=== PATIENT | male | born 1950 | race Caucasian/White ===

== ENCOUNTER 2017-07-10 05:27 | Inpatient (IN) | payer BC, OTHER ==
[2017-06-12 12:00] VITALS: BMI 36.0
--- NOTE | 2017-06-12 12:36 | PAT Medication Instructions ---
Service Date Jun 12, 2017. Current Home Medication List Acetaminophen (Tylenol), 1,000 MG PO PRN Albuterol Hfa (Ventolin Hfa), 2-4 PUFFS INH Q6H PRN for PRN Coenzyme Q10 (Ubidecarenone) (Coq10), 200 MG PO QPM Duloxetine HCl (Cymbalta), 1 CAP PO HS Gabapentin (Neurontin), 100 MG PO QID PRN for RN Hctz/Losartan (Hyzaar 12.5MG/50MG), 1 TAB PO QPM Naproxen (Aleve), 440 MG PO PRN Omeprazole (Prilosec), 20 MG PO QAM Medication Instructions For Your Scheduled Surgery - Check with surgeon for instructions: Naproxen (Aleve), 440 MG PO PRN - Hold the following medications 2 weeks prior to surgery: Coenzyme Q10 (Ubidecarenone) (Coq10), 200 MG PO QPM - Take the following medications the morning of surgery with a sip of water: Gabapentin (Neurontin), 100 MG PO QID PRN for RN (if needed) Omeprazole (Prilosec), 20 MG PO QAM Acetaminophen (Tylenol), 1,000 MG PO PRN (if needed) Albuterol Hfa (Ventolin Hfa), 2-4 PUFFS INH Q6H PRN for PRN (if needed) - Hold the following medications as scheduled the night before surgery: Hctz/Losartan (Hyzaar 12.5MG/50MG), 1 TAB PO QPM - Take the following medications as scheduled the night before surgery: Gabapentin (Neurontin), 100 MG PO QID PRN for RN (if needed) Duloxetine HCl (Cymbalta), 1 CAP PO HS Acetaminophen (Tylenol), 1,000 MG PO PRN (if needed) Albuterol Hfa (Ventolin Hfa), 2-4 PUFFS INH Q6H PRN for PRN (if needed) If you have any questions please call us at [phone] or [phone] or [phone]
[2017-06-12 13:01] LABS: BASO % 0.3 %; BASO ABS # 0.03 K/uL (0-0.2); COMPLETE YES; EOS % 2.3 %; HEMATOCRIT 41.1 % (42-52); IG% 0.6 %; LYMPH % 31.5 %; LYMPH ABS # 3.02 K/uL (1.2-3.4); MEAN CELL VOLUME 87.1 fL (80-100); MEAN CORPUSCULAR HEMOGLOBIN 30.7 pg (25-34); MEAN CORPUSCULAR HGB CONC 35.3 g/dl (32-36); MEAN PLATELET VOLUME 10.1 fL (7.4-10.4); MONO % 9.9 %; NEUT % 55.4 %; PLATELET COUNT 281 K/uL (130-400); RED BLOOD COUNT 4.72 M/uL (4.7-6.1); URINE APPEARANCE CLEAR (CLEAR); URINE BILIRUBIN NEG (NEG); URINE COLOR YELLOW; URINE NITRITE NEG (NEG); URINE SPECIFIC GRAVITY 1.016 (1.000-1.030); UROBILINOGEN NEG (NEG); ZZUR CULT IF INDIC CLEAN CATCH NO
[2017-06-12 13:03] LABS: MANUAL MICROSCOPIC REQUIRED? NO; REVIEW REQ? NO
[~2017-07-10] VITALS: Ht 170.2 cm; Wt 106.8 kg
[2017-07-10] VITALS (19 sets, daily range): BP systolic 120–166; BP diastolic 60–85; PULSE 72–97; TEMP 36.4–36.8; O2SAT 93–98; Ht 170.2 cm; Wt 106.8 kg
[~2017-07-10 05:27] MED LIST: ACET-1256 PO; COEN1CAP7 PO; CYM/30 PO; GABA-112 PO; HYZ/50125 PO; NAPR1TAB9 PO; PRLSR20 PO; VNTHFA/IN INH
[2017-07-10] MEDS ORDERED: LACTATED RINGER'S 1000ML 1,000 ML IV SCH (06:00)
[2017-07-10] MEDS ORDERED: CEFAZOLIN 2000 MG/60 ML D5W IV SCH (06:00)
[2017-07-10] MEDS ORDERED: FENTANYL CITRATE INJ 50 MCG/1 ML 2 ML VIAL ONE ×3 (06:41→07:59)
[2017-07-10] MEDS ORDERED: MIDAZOLAM HCL 1 MG/ML 2ML VIAL ONE (06:41)
[2017-07-10] MEDS ORDERED: SODIUM CHLORIDE 0.9% PF 50 ML VIAL ONE (07:09)
[2017-07-10] MEDS ORDERED: BACITRACIN 50000 UNIT VIAL ONE (07:09)
--- NOTE | 2017-07-10 07:27 | History & Physical Bridge Note ---
H&P Re-Evaluation Bridge Note: I have examined the patient, reviewed the History & Physical and in the interval since the performance of the History & Physical I have noted the following changes of clinical significance: No changes noted
--- NOTE | 2017-07-10 07:29 | History and Physical ---
History & Physical Date Jul 10, 2017. Chief Complaint Neck and arm pain History of Present Illness The patient is a 66 year old male with complaints of neck and arm pain Additional History Hepatic Disease: No Endocrine Disorder: No Kidney Disease: No Hypertension: Yes Heart Disease: No Bleeding Tendencies: No Infectious Diseases: No Allergies Coded Allergies: Aspirin (Verified Allergy, Unknown, LIPS SWELL, 07/10/17) Lisinopril (Verified Allergy, Unknown, COUGH, 07/10/17) Meperidine (Verified Allergy, Unknown, SLEEPS FOR HRS AND HRS, 07/10/17) Propoxyphene (Verified Allergy, Unknown, HIVES, 07/10/17) Statins (Verified Allergy, Unknown, BACK PAIN, 07/10/17) Home Medications Scheduled Acetaminophen (Tylenol), 1,000 MG PO PRN Coenzyme Q10 (Ubidecarenone) (Coq10), 200 MG PO QPM Duloxetine HCl (Cymbalta), 1 CAP PO HS Hctz/Losartan (Hyzaar 12.5MG/50MG), 1 TAB PO QPM Naproxen (Aleve), 440 MG PO PRN Omeprazole (Prilosec), 20 MG PO QAM Scheduled PRN Albuterol Hfa (Ventolin Hfa), 2-4 PUFFS INH Q6H PRN for PRN Gabapentin (Neurontin), 100 MG PO QID PRN for RN Physical Examination Skin: warm/dry, no rash Eyes: normal inspection, EOMI, sclerae normal ENT: normal ENT inspection, pharynx normal Head: normocephalic, atraumatic Neck: supple, no adenopathy, trachea midline Respiratory/Chest: lungs clear, normal breath sounds, no respiratory distress Cardiovascular: regular rate, rhythm, no edema, no murmur Abdomen / GI: normal bowel sounds, non tender Back: normal inspection Extremities: normal inspection, normal range of motion Neurologic/Psych: no motor/sensory deficits, alert, normal reflexes, oriented x 3 Diagnosis Cervical spinal stenosis with radiculopathy Plan of Treatment ACDF C6 7
[2017-07-10] MEDS ORDERED: EpHEDrine SULFATE INJ 50 MG/ML AMP IV PRN (07:30)
[2017-07-10] MEDS ORDERED: PHENYLEPHRINE 100MCG/ML 5ML SYR IV PRN (07:30)
[2017-07-10] MEDS ORDERED: ONDANSETRON INJ 2 MG/ML 2 ML VIAL IV PRN ×2 (07:30→09:00)
[2017-07-10] MEDS ORDERED: ATROPINE SULFATE 0.1 MG/ML 5ML SYR IV PRN (07:30)
[2017-07-10] MEDS ORDERED: HYDROmorphone INJ 2 MG/ML SYR/VIAL ONE ×2 (07:59→08:43)
[2017-07-10] MEDS ORDERED: PROPOFOL IV EMULSION 10 MG/ML 20 ML VIAL IV ONE (08:20)
[2017-07-10] MEDS ORDERED: CEFAZOLIN SOD 1 GM VIAL ONE (08:20)
[2017-07-10] MEDS ORDERED: DEXAMETHASONE SOD INJ 4 MG/ML VIAL ONE (08:20)
[2017-07-10] MEDS ORDERED: FLOSEAL HEMOSTATIC MATRIX 5ML TOP ONE (08:44)
--- NOTE | 2017-07-10 08:58 | [facility] Operative Report ---
Operative Report Operative Date Jul 10, 2017. Pre-Operative Diagnosis Cervical spinal stenosis with radiculopathy Post-Operative Diagnosis Cervical spinal stenosis with radiculopathy Procedure(s) Performed #1 anterior cervical discectomy bilateral foraminotomies C6 7. #2 anterior cervical arthrodesis C6 7. #3 placement of cortical R graft 9 mm in height filled with DBM C6 7. #4 application of vega plate and screws across C6 7. Surgeon Dr. Arcadio Carpenter Last Turner Surgeon(s) DESTINY Qureshi Estimated Blood Loss 10ml Findings Herniated nucleus pulposus C6 7 Specimens none per surgeon Description of Procedure Patient was met with case discussed all questions are dressed. After informed consent patient taken the operative suite and underwent intubation placed in a supine position on the [place] table head in the [place] headholder. Anterior cervical spine was prepped and draped nostril fashion. With the assistance of fluoroscopy we identified the C6 7 disc space. A transverse incision was placed along the right anterior aspect of the cervical spine overlying this region. Sharp dissection with the assistance of bipolar cautery was performed onto an exposing the anterior cervical spine at C6 7. Self-retaining retractors placed. Complete discectomy of C6 7 was then performed out to the uncovertebral joints bilaterally. This did include removal of all posterior annular fibers and longitudinal ligament and bilateral foraminotomies. [place] distracting pins were utilized to assist us no visualization. After complete decompression endplates were burred to subcortical bleeding bone and a 9 mm cortical R graft filled with DBM tapped in position. Distracting apparatus was removed all anterior osteophytes burred to a smooth cortical surface and a vega plate and screws applied with the assistance of fluoroscopy. Incision was in copious irrigated explored to ensure there is no damage turning structures remaining bleeding. 10 round JAN drain was inserted. Incision was then closed with 2 Vicryl in the fascia for Monocryl for final closure Steri- Strip sterile dressing placed patient we can taken to PACU stable condition. Please note Josefina Leyva was present at the entire procedure involved in patient positioning complex portions of the surgery and final skin closure. I attest to the content of the Intraoperative Record and any orders documented therein. Any exceptions are noted below.
--- NOTE | 2017-07-10 08:59 | DIAGNOSTIC IMAGING REPORT ---
Radiology CERVICAL 2 OR 3 VIEWS CLINICAL HISTORY: 66 years-old Male presenting with ACDF C6-7. TECHNIQUE: 3 fluoroscopic spot image(s) obtained as part of an intraoperative procedure. COMPARISON: 05/21/2017. FINDINGS/IMPRESSION: There has been interval anterior cervical fusion of 2 levels in the lower cervical region, likely C6-7. Anatomic alignment is grossly maintained. Please see surgical report for further details. Fluoroscopy dosage (mGy): Not available. Fluoroscopy time: 18.2 seconds. Number of fluoroscopic spot images: 3. Electronically signed by: Alan Villalobos M.D. 07/10/2017 8:58 AM Dictated Date/Time: 07/10/2017 8:57 AM
[2017-07-10] MEDS ORDERED: MAGNESIUM HYDROXIDE SUSP 30 ML UDC PO PRN (09:00)
[2017-07-10] MEDS ORDERED: LORAZEPAM 0.5 MG TAB PO PRN (09:00)
[2017-07-10] MEDS ORDERED: OXYCODONE HCL IR 5 MG TAB (IMMEDIATE RELEASE) PO PRN (09:00)
[2017-07-10] MEDS ORDERED: ACETAMINOPHEN IV 1,000 MG in EMPTY BAG 0 ML IV PRN (09:00)
[2017-07-10] MEDS ORDERED: HYDROmorphone INJ 0.5 MG/0.5 ML SYR IV PRN (09:00)
[2017-07-10] MEDS ORDERED: NALOXONE HCL 0.4 MG/1 ML VIAL/CARP IV PRN (09:00)
[2017-07-10] MEDS ORDERED: LORAZEPAM INJ 0.5 MG in SYRINGE 0.75 ML IV PRN (09:00)
[2017-07-10] MEDS ORDERED: DEXAMETHASONE INJ 8 MG in SYRINGE 0 ML IV PRN (09:00)
[2017-07-10] MEDS ORDERED: ALBUTEROL HFA 8 GM INHALER INH PRN (09:00)
[2017-07-10] MEDS: PANTOprazole SOD 40 MG TAB PO SCH (09:00)
[2017-07-10] MEDS ORDERED: DO NOT ADMINISTER FLU VACCINE PRN ×3 (09:00)
[2017-07-10] MEDS ORDERED: GABAPENTIN 100 MG CAP PO PRN (09:00)
[2017-07-10] MEDS ORDERED: DO NOT ADMINISTER PNEUMOCOCCAL VACCINE PRN ×2 (09:00)
[2017-07-10] MEDS ORDERED: RACEPINEPHRINE 2.25% NEBU SOLN 0.5 ML VIAL INH PRN (09:00)
[2017-07-10] MEDS ORDERED: NEOSTIGMINE METHYLSULFATE 1 MG/ML 10ML VIAL ONE (09:02)
[2017-07-10] MEDS ORDERED: LABETALOL HCL IV 5 MG/ML 20ML IV ONE (09:02)
[2017-07-10] MEDS ORDERED: GLYCOPYRROLATE INJ 0.2 MG/ML VIAL ONE (09:02)
[2017-07-10] MEDS ORDERED: ONDANSETRON INJ 2 MG/ML 2 ML VIAL ONE (09:02)
[2017-07-10] MEDS: HYDROmorphone INJ 2 MG/ML SYR/VIAL IV PRN ×3 (09:08→09:28)
[2017-07-10] MEDS: DiphenhydrAMINE HCL 50 MG/ML VIAL IV PRN ×2 (09:19→09:40)
[2017-07-10] MEDS ORDERED: NURSING VERBAL MED ORDER ONE (09:38)
[2017-07-10] MEDS ORDERED: HydrALAZINE HCL 20 MG/ML VIAL ONE (09:49)
--- NOTE | 2017-07-10 09:58 | Anesthesiology Progress Note ---
Anesthesia Post Op Note Date & Time Jul 10, 2017 at 09:58 Vital Signs Pain Intensity: 4 Vital Signs Past 12 Hours Date Time Temp Pulse Resp B/P (MAP) Pulse Ox O2 Delivery O2 Flow Rate FiO2 07/10/17 09:45 77 12 170/102 96 Oxymask 3 07/10/17 09:35 70 12 168/97 94 Oxymask 3 07/10/17 09:25 79 20 167/99 98 Oxymask 6 07/10/17 09:15 76 13 165/98 99 Oxymask 10 07/10/17 09:05 77 16 161/107 98 Oxymask 10 07/10/17 08:55 36.0 84 16 170/138 96 Oxymask 10 07/10/17 05:56 36.7 83 18 166/82 (110) 94 Room Air Notes Mental Status: alert / awake / arousable, participated in evaluation Pt Amnestic to Procedure: Yes Nausea / Vomiting: adequately controlled Pain: adequately controlled Airway Patency, RR, SpO2: stable & adequate BP & HR: stable & adequate Hydration State: stable & adequate Anesthetic Complications: no major complications apparent
[2017-07-10] MEDS ORDERED: DiphenhydrAMINE HCL 50 MG/ML VIAL IV SCH (10:00)
[2017-07-10] MEDS: LACTATED RINGER'S 1000ML 1,000 ML IV SCH ×2 (11:12→23:35)
[2017-07-10] MEDS ORDERED: HYDROmorphone INJ 1 MG/ML SYR IV PRN (11:15)
[2017-07-10] MEDS ORDERED: RXC5 PO (11:17)
--- NOTE | 2017-07-10 11:17 | Discharge Instructions ---
Discharge Instructions Date of Service Jul 10, 2017. Admission Reason for Admission: Cervical Spinal Stenosis Discharge Discharge Diagnosis / Problem: cervical stenosis Discharge Goals Goal(s): Improve function Activity Recommendations Activity Limitations: per Instructions/Follow-up section . Instructions / Follow-Up Instructions / Follow-Up ACTIVITY RECOMMENDATIONS: SELF CARE INSTRUCTIONS AFTER CERVICAL FUSIONS 1. No smoking. Smoking drastically decreases the chance of a solid fusion. 2. No bending, lifting more than 5 pounds, or twisting (roll like a log when turning in bed). 3. You may shower 3 days after surgery. Thoroughly dry wound. Do not soak in the tub. 4. Cervical collar: Must be worn at all times including sleeping. You may remove the brace only to bath, eat and if you are sitting in a recliner. 5. Please walk as much as you can for exercise. Gradually increase the distance that you walk as your endurance increases. SPECIAL CARE INSTRUCTIONS: VERY IMPORTANT TO READ AND REVIEW A. Do not take any anti-inflammatory medications (i.e. Indocin, Advil, Aspirin, Naprosyn, Aleve, Motrin, etc.) as these may inhibit the chance of a solid fusion. Tylenol is okay to take. B. Your surgical incision has been closed with a cosmetic suture under the skin that will dissolve in about 6 weeks. In 14 days, you can use a pair of clean scissors and cut the suture that is left outside of the skin at the ends of your incision. C. Complications are uncommon, but please contact us if you have any signs or symptoms of: 1. wound infection (fever higher than 102.5 degrees F, redness, separation of wound, drainage, or increasing pain from the incision) 2. blood clots in legs (pain, swelling, redness and warmth in legs) 3. urinary tract infection (fever higher than 102.5 degrees, burning upon urination or increased frequency of urination) 4. nerve problems (inability to walk on your toes or heels, numbness, loss of bowel or bladder control) 5. any other symptoms that concern you. D. Please call the office at if you have any concerns or questions about your operation or recovery. MANAGING PAIN AFTER SPINAL SURGERY 1. Narcotic medication is intended for short-term use and will be provided for surgical pain. Surgical pain usually lasts for a period of 4-6 weeks. Narcotic medication includes Percocet, Vicodin, Darvocet, Tylenol #3 or Lortab. 2. Longer-term pain is more appropriately treated with non-narcotic medication such as Tylenol ES. 3. Muscle spasm is not appropriately treated with narcotics. Muscle relaxers such as Soma, Flexeril or Skelaxin can be used along with Tylenol ES. 4. Remember that we all live with some "aches and pains". This is not unusual or uncommon after an injury or as we get older. 5. We will provide appropriate medication within the normal guidelines of their prescribed use. We will also be very cautious and aware of potential abuse and extended duration of patients' medication needs. 6. Please allow 2-3 days to process refills. Prescriptions will not be mailed but must be picked up at the office. FOLLOW UP VISIT: Keep your scheduled follow-up appointment. Any questions, please call the office at . Current Hospital Diet Patient's current hospital diet: Clear Liquid Diet Discharge Diet Recommended Diet: Regular Diet Procedures Procedures Performed: #1 anterior cervical discectomy bilateral foraminotomies C6 7. #2 anterior cervical arthrodesis C6 7. #3 placement of cortical R graft 9 mm in height filled with DBM C6 7. #4 application of vega plate and screws across C6 7. Pending Studies Studies pending at discharge: no Medical Emergencies . Who to Call and When: Medical Emergencies: If at any time you feel your situation is an emergency, please call 911 immediately. . Non-Emergent Contact Non-Emergency issues call your: Primary Care Provider . "Provider Documentation" section prepared by Arcadio Carpenter. . VTE Core Measure Inpt VTE Proph given/why not?: Nell Arriaza, SCD's
[2017-07-10] MEDS ORDERED: SCOPOLAMINE 1.5 MG TDSY TD SCH (12:00)
[2017-07-10] MEDS ORDERED: ROCURONIUM BROMIDE 10 MG/ML 5 ML VIAL IV ONE (12:19)
[2017-07-10] MEDS: DEXAMETHASONE INJ 6 MG in SYRINGE 0 ML IV SCH ×3 (15:04→21:36)
[2017-07-10] MEDS: CHECK SCOPOLAMINE PATCH PLACEMENT SCH ×2 (16:00→23:36)
[2017-07-10] MEDS: CEFAZOLIN IV 2,000 MG in DEXTROSE 5% 50ML 50 ML IV SCH ×2 (16:42→23:36)
[2017-07-10] MEDS ORDERED: NURSING DECISION MEDICATION ORDER SCH (17:45)
[2017-07-10] MEDS ORDERED: COUGH DROP (SUGAR FREE) LOZ 24 LOZ/1 BOX PO PRN (18:00)
[2017-07-10] MEDS ORDERED: LOSARTAN/HCTZ 50-12.5 EA TAB PO SCH (21:00)
[2017-07-10] MEDS ORDERED: DULOXETINE (CYMBALTA) 30 MG CAP PO SCH (21:00)
[2017-07-10] MEDS: DOCUSATE SODIUM 100 MG CAP PO SCH (21:36)
[2017-07-11] VITALS (15 sets, daily range): BP systolic 129–146; BP diastolic 75–83; PULSE 80–96; TEMP 36.4–36.8; O2SAT 91–95
[2017-07-11] MEDS: DEXAMETHASONE INJ 6 MG in SYRINGE 0 ML IV SCH (05:38)
[2017-07-11] MEDS: CHECK SCOPOLAMINE PATCH PLACEMENT SCH (08:22)
[2017-07-11] MEDS: DOCUSATE SODIUM 100 MG CAP PO SCH (08:22)
[2017-07-11] MEDS: PANTOprazole SOD 40 MG TAB PO SCH (08:22)
[2017-07-11] MEDS: CEFAZOLIN IV 2,000 MG in DEXTROSE 5% 50ML 50 ML IV SCH (08:26)
--- NOTE | 2017-07-11 10:34 | Discharge Summary ---
Orthopedic Discharge Summary Admission Date/Reason Jul 10, 2017 at 07:30 Cervical Spinal Stenosis. Discharge Date/Disposition Jul 11, 2017 Home Diagnosis Principal Diagnosis: Cervical spinal stenosis Admission Physical Exam As per Admitting History & Physical. Hospital Course Patient underwent anterior cervical discectomy and fusion tolerated this well as taken to the orthopedic floor postoperatively. Postoperatively he was swallowing without difficulty no hoarseness arm symptoms improved subsequently discharged home. Discharge orders and instructions found on the chart for further review. Discharge Instructions Please refer to the electronic Patient Visit Report (Discharge Instructions) for additional information.
--- NOTE | 2017-07-11 11:01 | Anesthesiology Progress Note ---
Anesthesia Post Op Note Date & Time Jul 11, 2017 at 11:01 Vital Signs Pain Intensity: 1.0 Vital Signs Past 12 Hours Date Time Temp Pulse Resp B/P (MAP) Pulse Ox O2 Delivery O2 Flow Rate FiO2 07/11/17 09:40 36.7 96 16 133/80 94 Room Air 0.5 07/11/17 09:40 36.7 96 16 133/80 (97) 94 Room Air 07/11/17 07:40 93 Nasal Cannula 0.5 07/11/17 07:40 36.6 89 16 144/82 (102) 93 Nasal Cannula 0.5 07/11/17 07:40 84 14 93 Nasal Cannula 2.0 07/11/17 07:40 36.6 89 16 144/82 93 Nasal Cannula 0.5 07/11/17 07:15 36.7 83 16 145/83 (103) 93 Nasal Cannula 1.0 07/11/17 06:27 94 Nasal Cannula 1.0 Humidified Oxygen 07/11/17 05:40 36.6 88 16 146/83 94 Nasal Cannula 3.0 Humidified Oxygen 07/11/17 05:31 36.4 91 16 135/81 (99) 95 Humidified Oxygen 2.0 07/11/17 03:38 85 14 93 Nasal Cannula 2.0 07/11/17 03:32 36.6 86 18 130/78 (95) 94 Nasal Cannula 3.0 Humidified Oxygen 07/11/17 03:30 36.6 85 18 130/78 94 Nasal Cannula 3.0 07/11/17 01:37 36.8 80 18 145/79 (101) 93 Nasal Cannula 3.0 Humidified Oxygen 07/11/17 01:37 36.8 80 18 145/79 93 Nasal Cannula 3.0 Humidified Oxygen 07/10/17 23:52 86 14 94 Nasal Cannula 2.0 07/10/17 23:40 Nasal Cannula 3.0 Humidified Oxygen 07/10/17 23:30 36.5 91 18 120/80 (93) 93 Humidified Oxygen 2.0 Notes Mental Status: alert / awake / arousable, participated in evaluation Pt Amnestic to Procedure: Yes Nausea / Vomiting: adequately controlled Pain: adequately controlled Airway Patency, RR, SpO2: stable & adequate BP & HR: stable & adequate Hydration State: stable & adequate Anesthetic Complications: no major complications apparent
[2017-07-12] MEDS ORDERED: BISACODYL 10 MG SUPP PR PRN (06:00)
[2017-07-12] MEDS ORDERED: BISACODYL 5 MG TABEC PO PRN (06:00)
[2017-07-12] MEDS ORDERED: POLYETHYLENE (MIRALAX) 17 GM PACK PO SCH (09:00)
== END 2017-07-11 14:45 | disposition home or self-care (01) | DRG 473 ==
LOC: C.ACU 05:27 → C.3E 07:30 → ENRESERV 09:44
PROVIDERS: ADMIT Orthopaedic Surgery Orthopaedic Surgery of the Spine; ATTEND Orthopaedic Surgery Orthopaedic Surgery of the Spine
PROC: 0RT30ZZ Resection of Cervical Vertebral Disc, Open Approach (ICD-10-PCS; principal; 2017-07-10 07:45)
PROC: 0RG10K0 Fusion of Cervical Vertebral Joint with Nonautologous Tissue Substitute, Anterior Approach, Anterior Column, Open Approach (ICD-10-PCS; principal; 2017-07-10 07:45)
DX: M48.02 Spinal stenosis, cervical region (principal); M54.12 Radiculopathy, cervical region; I10 Essential (primary) hypertension; Z79.899 Other long term (current) drug therapy